=== PATIENT | female | born 1950 | race Caucasian/White ===

== ENCOUNTER 2018-05-29 18:48 | Emergency (ER) | payer MEDICARE, OTHER, SELFPAY ==
[2018-05-29 18:53] VITALS: BP 148/89; PULSE 98; RESP 15; TEMP 36.6; O2SAT 97; BMI 34.0
--- NOTE | 2018-05-29 18:54 | DI.RAD.S_ITS ---
PROCEDURE: XR WRIST LT MIN 3V INDICATIONS: left wrist injury s/p fall TECHNIQUE: 4 views of the wrist were acquired. COMPARISON: None. FINDINGS: Bones: Cortical irregularity along the radial aspect of the distal radial metaphysis raising the possibility of incomplete fracture. Soft tissues: No suspicious soft tissue calcifications. IMPRESSION: Cortical irregularity along the radial aspect of the distal radial metaphysis raising the possibility of incomplete nondisplaced fracture. Please correlate to point tenderness and if necessary further evaluation with repeat radiographs in 10 days could be performed. Otherwise, no fracture. Dictated by: Aramis Cruz M.D. on 05/29/2018 at 20:30 Approved by: Aramis Cruz M.D. on 05/29/2018 at 20:34
--- NOTE | 2018-05-29 20:07 | PC.NURSE ---
sugar tounge applied with sling. pos cms
[2018-05-29 20:08] VITALS: BP 141/80; PULSE 89; RESP 16; O2SAT 99
--- NOTE | 2018-05-29 20:09 | PC.NURSE ---
32 inches of 4in ortho glass applied over cotton padding/wrap on bony prominences. secured in place with 2 rolls of 3in acr wrap. pt reports feeling more comfortable.
--- NOTE | 2018-05-30 02:23 | ED_ITS ---
HPI - Extremity Problem General Chief complaint: Extremity Injury, Upper Stated complaint: THINKS SHE BROKE HER LEFT WRIST Time Seen by Provider: 05/29/18 18:51 Source: patient Mode of arrival: ambulatory Limitations: no limitations History of Present Illness HPI Narrative: 67-year-old female with history of hypertension presents to the emergency department with chief complaint of left distal wrist pain after falling her outstretched wrist. She states that she struck her head and then fell backwards and caught herself with her arm. She heard a snap. She denies any numbness, tingling or weakness. She denies other injury. She denies loss of consciousness nor nausea or vomiting. She denies any blurred vision, trouble with speech or other neurologic symptoms. MD Complaint: extremity pain Pain Consistency: constant Location: left Quality: aching Radiation: none Relieving factors: rest Exacerbating factors: range of motion Related Data Previous Rx's Medication Instructions Recorded amlodipine [Norvasc] 5 mg PO QDAY #90 tab 03/20/17 levothyroxine 112 mcg PO QAM #90 tab 03/20/17 lisinopril 30 mg PO QDAY #90 tab 03/20/17 simvastatin 20 mg PO HS #90 tab 03/20/17 venlafaxine [Effexor XR] 225 mg PO QDAY #270 cap 06/23/17 Allergies Allergy/AdvReac Type Severity Reaction Status Date / Time Penicillins [PENICILLINS] Allergy Mild Verified 05/29/18 18:53 Review of Systems Review of Systems All systems reviewed & are unremarkable except as noted in HPI and below Constitutional Denies chills, Denies fever(s), Denies lethargy and Denies weakness Eyes Denies change in vision, Denies eye discharge, Denies irritation and Denies loss of vision ENT Ears, Nose, Mouth, and Throat: Denies change in voice, Denies neck pain and Denies sore throat Cardiovascular Denies chest pain, Denies irregular heart rhythm, Denies lightheadedness, Denies palpitations, Denies dyspnea, Denies dyspnea on exertion and Denies orthopnea Respiratory Denies cough, Denies dyspnea, Denies dyspnea on exertion and Denies wheezing Gastrointestinal Gastrointestinal: Denies abdominal pain, Denies change in bowel habits, Denies diarrhea, Denies nausea and Denies vomiting Genitourinary Denies hematuria, Denies flank pain, Denies urinary incontinence and Denies urinary urgency Musculoskeletal Reports joint swelling, Reports limited range of motion and Denies neck pain Integumentary/Breasts Denies pruritus, Denies erythema, Denies rash and Denies wounds Neurologic Denies confusion, Denies loss of vision and Denies weakness Psychiatric Denies anxiety, Denies confusion, Denies depression, Denies homicidal ideation and Denies suicidal ideation Endocrine Denies palpitations Hematologic/Lymphatic Denies easy bruising Allergic/Immunologic Denies wheezing PFSH Social History Smoking Status: Never smoker Exam Narrative Exam Narrative: Pleasant 67-year-old female obviously in some pain, clutching her left wrist Initial Vital Signs Initial Vital Signs: Vital Signs Temperature 97.8 F 05/29/18 18:53 Pulse Rate 98 H 05/29/18 18:53 Respiratory Rate 15 05/29/18 18:53 Blood Pressure 148/89 H 05/29/18 18:53 Pulse Oximetry 97 05/29/18 18:53 Const General: cooperative and well developed Nutritional Appearance: well nourished Orientation: alert, awake, oriented x3 and not confused Resp Effort & Inspection: normal respiratory effort, able to speak in complete sentences, no respiratory distress and no use of accessory muscles Auscultation: clear to auscultation bilaterally, no rales, no rhonchi and no wheezes GI Inspection: non-distended Palpation: soft, no hepatosplenomegaly, No guarding, No pulsatile mass and No tender Auscultation: normal bowel sounds Back/Spine/Pelvis Back: No CVA tenderness Cervical Spine: cervical ROM normal and No pain with cervical ROM Thoracic/Lumbar Spine: thoracic and lumbar spine normal to inspection Skin General: no rashes or lesions noted, No jaundice and No petechiae Neuro General: alert, oriented x3, gait normal and no focal motor deficits Speech: speech normal Extrem Left upper extremity: wrist Details: tenderness and abnormal ROM Procedures Orthopedic Splinting/Casting Injury #1: Side: left Upper Extremity Immobilizer: sling/shoulder immobilizer and sugar tong splint Course Orders Ordered: ED Orders 05/29/18 18:54 XR wrist LT min 3V Stat Vital Signs - 8 hr 05/29/18 18:53 05/29/18 20:08 Temperature 97.8 F Pulse Rate 98 H 89 Respiratory Rate 15 16 Blood Pressure 148/89 H 141/80 H Pulse Oximetry 97 99 Discharge Plan Departure Patient Disposition: Home, Self-Care Clinical Impression: Closed fracture of left distal radius Discharge Date/Time: 05/29/18 20:16 Interventions: ED Discharge Assessment Last Done: 05/29/18 20:08 Instructions: DI for Distal Radius Fracture Activity Restrictions/Additional Instructions: *You have been diagnosed with [ minimally displaced left distal radius fracture ] *What to do: *Take medications as directed: Tylenol or Motrin for pain *Follow up with [facility], call for an appointment. Let them know you were seen in the Emergency Department and that we ask that you be seen in follow up *Return to ER if you should have any new, worsening or concerning symptoms , such as [increasing swelling, pain or numbness, tingling or weakness of the fingers ] Prescriptions: No Action amlodipine [Norvasc] 5 MG tablet 5 mg PO QDAY Qty: 90 RF: 3 simvastatin 20 MG tablet 20 mg PO HS Qty: 90 RF: 3 lisinopril 30 MG tablet 30 mg PO QDAY Qty: 90 RF: 3 levothyroxine 112 MCG tablet 112 mcg PO QAM Qty: 90 RF: 3 venlafaxine [Effexor XR] 75 MG capsule,extended release 24hr 225 mg PO QDAY Qty: 270 RF: 3 Referrals: Medardo Burch MD [Physician] -
== END 2018-05-29 20:16 | disposition home or self-care (01) ==
PROVIDERS: Emergency Provider Emergency Medicine
DX: S52.502A Unspecified fracture of the lower end of left radius, initial encounter for closed fracture (principal); W19.XXXA Unspecified fall, initial encounter
CPT/HCPCS: 73110; 99282; 99283

== ENCOUNTER → 2019-01-21 14:17 | Outpatient (CLI) | payer MEDICARE, OTHER, SELFPAY ==
--- NOTE | 2019-01-21 | DI.MG.S_ITS ---
BILATERAL DIGITAL SCREENING MAMMOGRAM 3D/2D WITH CAD: 01/21/2019 CLINICAL: Routine screening. Comparison is made to exams dated: 10/16/2016 mammogram, 08/21/2015 mammogram, and 03/01/2013 mammogram - [facility]. There are scattered fibroglandular elements in both breasts. Current study was also evaluated with a Computer Aided Detection (CAD) system. No significant masses, calcifications, or other findings are seen in either breast. There has been no significant interval change. IMPRESSION: NEGATIVE There is no mammographic evidence of malignancy. A 1 year screening mammogram is recommended. This exam was interpreted at Station ID: [id number]. NOTE: For mammograms, a report in lay terms will be sent to the patient. Approximately 15% of breast malignancies will not be visualized mammographically. In the management of a palpable breast mass, a negative mammogram must not discourage biopsy of a clinically suspicious lesion. Electronically Signed By: Rafael barber/evy:01/21/2019 18:39:19 letter sent: Normal Exam ACR BI-RADS Category 1: Negative [id number]
== END ==
PROVIDERS: Visit Provider Family Medicine
DX: Z12.31 Encounter for screening mammogram for malignant neoplasm of breast (principal)
CPT/HCPCS: 77063; 77067

== ENCOUNTER → 2021-04-22 08:08 | Outpatient (CLI) | payer MEDICARE, OTHER, SELFPAY ==
[2021-04-22 20:40] LABS: Add Manual Diff / Slide Review NO; Basophils Absolute Auto 0 /uL (0-100); Basophils Percent Auto 0.6 % (0-2); Eosinophils Absolute Auto 200 /uL (0-450); Eosinophils Percent Auto 2.8 % (2-4); Hematocrit 42.2 % (36-46); Hemoglobin 14.2 g/dL (12.0-16.0); Lymphocytes Absolute Auto 1200 /uL (1100-4500); Lymphocytes Percent Auto 22.9 % (25-40); Mean Corpuscular HGB Conc 33.6 % (30-36); Mean Corpuscular Hemoglobin 30.8 PG (26-34); Mean Corpuscular Volume 91.8 fL (80-100); Monocytes Absolute Auto 500 /uL (0-900); Monocytes Percent Auto 8.5 % (3-14); Neutrophils Absolute Auto 3500 /uL (1500-7000); Neutrophils Percent Auto 65.2 % (50-75); Platelet Count 221 X10^3/uL (150-400); White Blood Cell Count 5.3 X10^3/uL (4.5-11.0)
[2021-04-22 20:52] LABS: Alanine Aminotransferase 33 IU/L (<35); Albumin Globulin Ratio 1.7 (1.0-2.8); Alkaline Phosphatase 128 U/L (38-126); Aspartate Aminotransferase 32 IU/L (14-36); BUN Creatinine Ratio 27.4 (6-22); Bilirubin Total 0.4 mg/dL (0.2-1.3); Blood Urea Nitrogen 17 mg/dL (7-17); Calcium 9.2 mg/dL (8.4-10.2); Carbon Dioxide 25 mmol/L (22-32); Chloride 107 mmol/L (98-107); Cholesterol 173 mg/dL (140-199); Estimated Glomerular Filt Rate > 60.0 mL/min (>60); Globulin 2.4 g/dL (1.7-4.1); Glucose 119 mg/dL (80-110); HDL Cholesterol 50 mg/dL (40-60); HEMOLYSIS < 15 (0-50); LDL Cholesterol Calculated 98 mg/dL (<100); Potassium 4.2 mmol/L (3.4-5.1); Sodium 141 mmol/L (137-145); Total Protein 6.4 g/dL (6.3-8.2); Triglycerides 125 mg/dL (35-150)
[2021-04-22 20:59] LABS: Hemoglobin A1C% w Est Avg Glu 5.7 % (4.0-6.0)
[2021-04-22 21:21] LABS: Thyroid Stimulating Hormone 13.1 uIU/mL (0.47-4.68)
== END ==
PROVIDERS: PCP Family Medicine; Visit Provider Physician Assistant
DX: E03.9 Hypothyroidism, unspecified (principal); R73.9 Hyperglycemia, unspecified; E78.2 Mixed hyperlipidemia
CPT/HCPCS: 80053; 80061; 83036; 84443; 85025

== ENCOUNTER → 2022-04-18 08:07 | Outpatient (CLI) | payer MEDICARE, OTHER, SELFPAY ==
[2022-04-18 18:42] LABS: Add Manual Diff / Slide Review NO; Basophils Absolute Auto 100 /uL (0-100); Eosinophils Absolute Auto 200 /uL (0-450); Eosinophils Percent Auto 4.3 % (2-4); Hematocrit 43.8 % (36-46); Hemoglobin 15.1 g/dL (12.0-16.0); Lymphocytes Absolute Auto 1300 /uL (1100-4500); Lymphocytes Percent Auto 22.4 % (25-40); Mean Corpuscular HGB Conc 34.4 % (30-36); Mean Corpuscular Hemoglobin 30.4 PG (26-34); Mean Corpuscular Volume 88.5 fL (80-100); Monocytes Absolute Auto 500 /uL (0-900); Monocytes Percent Auto 9.2 % (3-14); Neutrophils Absolute Auto 3700 /uL (1500-7000); Neutrophils Percent Auto 63.1 % (50-75); Platelet Count 244 X10^3/uL (150-400); Red Blood Cell Count 4.95 X10^6/uL (4.0-5.2); Red Cell Distribution Width 13.4 % (11.6-14.8); White Blood Cell Count 5.9 X10^3/uL (4.5-11.0)
[2022-04-18 19:05] LABS: Alanine Aminotransferase 26 IU/L (<35); Albumin 4.3 g/dL (3.5-5.0); Albumin Globulin Ratio 1.7 (1.0-2.8); Alkaline Phosphatase 126 U/L (38-126); Aspartate Aminotransferase 33 IU/L (14-36); BUN Creatinine Ratio 35.3 (6-22); Bilirubin Total 0.7 mg/dL (0.2-1.3); Blood Urea Nitrogen 18 mg/dL (7-17); Calcium 9.1 mg/dL (8.4-10.2); Carbon Dioxide 23 mmol/L (22-32); Chloride 109 mmol/L (98-107); Cholesterol 202 mg/dL (140-199); Estimated Glomerular Filt Rate > 60 mL/min (>60); Globulin 2.6 g/dL (1.7-4.1); Glucose 116 mg/dL (80-110); HDL Cholesterol 62 mg/dL (40-60); HEMOLYSIS 22 (0-50); LDL Cholesterol Calculated 117 mg/dL (<100); Potassium 4.4 mmol/L (3.4-5.1); Sodium 141 mmol/L (137-145); Total Protein 6.9 g/dL (6.3-8.2); Triglycerides 113 mg/dL (35-150)
[2022-04-18 19:33] LABS: TSH w/ Reflex to FT4 < 0.02 uIU/mL (0.47-4.68)
[2022-04-18 20:18] LABS: Free T4, Direct Thyroxine 1.84 ng/dL (0.78-2.19)
== END ==
PROVIDERS: PCP Physician Assistant; Visit Provider Physician Assistant
DX: E03.9 Hypothyroidism, unspecified (principal); E78.2 Mixed hyperlipidemia; I10 Essential (primary) hypertension; Z79.899 Other long term (current) drug therapy
CPT/HCPCS: 80053; 80061; 84439; 84443; 85025

== ENCOUNTER → 2022-10-16 13:49 | Outpatient (CLI) | payer MEDICARE, OTHER, SELFPAY ==
[2022-10-16 19:05] LABS: Alanine Aminotransferase 32 IU/L (<35); Albumin 4.1 g/dL (3.5-5.0); Albumin Globulin Ratio 1.7 (1.0-2.8); Alkaline Phosphatase 144 U/L (38-126); Aspartate Aminotransferase 28 IU/L (14-36); BUN Creatinine Ratio 28.4 (6-22); Bilirubin Total 0.4 mg/dL (0.2-1.3); Blood Urea Nitrogen 19 mg/dL (7-17); Calcium 9.6 mg/dL (8.4-10.2); Carbon Dioxide 25 mmol/L (22-32); Chloride 106 mmol/L (98-107); Estimated Glomerular Filt Rate > 60 mL/min (>60); Globulin 2.4 g/dL (1.7-4.1); Glucose 143 mg/dL (80-110); HEMOLYSIS < 15 (0-50); Potassium 4.5 mmol/L (3.4-5.1); Sodium 141 mmol/L (137-145); Total Protein 6.5 g/dL (6.3-8.2)
[2022-10-16 19:30] LABS: TSH w/ Reflex to FT4 < 0.02 uIU/mL (0.47-4.68)
[2022-10-16 20:40] LABS: Free T4, Direct Thyroxine 1.52 ng/dL (0.78-2.19)
== END ==
PROVIDERS: PCP Physician Assistant; Visit Provider Physician Assistant
DX: E03.9 Hypothyroidism, unspecified (principal); Z79.899 Other long term (current) drug therapy
CPT/HCPCS: 80053; 84439; 84443

== ENCOUNTER → 2023-04-06 10:20 | Outpatient (CLI) | payer MEDICARE, OTHER, SELFPAY ==
[2023-04-06 19:52] LABS: TSH w/ Reflex to FT4 0.07 uIU/mL (0.47-4.68)
== END ==
PROVIDERS: PCP Physician Assistant; Visit Provider Physician Assistant
DX: E03.9 Hypothyroidism, unspecified (principal)
CPT/HCPCS: 84439; 84443

== ENCOUNTER → 2023-07-02 13:16 | Outpatient (CLI) | payer MEDICARE, OTHER, SELFPAY ==
[2023-07-02 20:13] LABS: TSH w/ Reflex to FT4 0.83 uIU/mL (0.47-4.68)
== END ==
PROVIDERS: PCP Physician Assistant; Visit Provider Physician Assistant
DX: E03.9 Hypothyroidism, unspecified (principal)
CPT/HCPCS: 84443

== ENCOUNTER → 2023-12-16 09:27 | Outpatient (CLI) | payer MEDICARE, OTHER, SELFPAY ==
[2023-12-16 20:36] LABS: Add Manual Diff / Slide Review NO; Basophils Absolute Auto 0 /uL (0-100); Basophils Percent Auto 0.9 % (0-2); Eosinophils Absolute Auto 200 /uL (0-450); Hematocrit 43.5 % (36-46); Hemoglobin 14.7 g/dL (12.0-16.0); Lymphocytes Absolute Auto 1100 /uL (1100-4500); Lymphocytes Percent Auto 20.6 % (25-40); Mean Corpuscular HGB Conc 33.8 % (30-36); Mean Corpuscular Hemoglobin 30.6 PG (26-34); Mean Corpuscular Volume 90.5 fL (80-100); Monocytes Absolute Auto 400 /uL (0-900); Monocytes Percent Auto 8.1 % (3-14); Neutrophils Absolute Auto 3600 /uL (1500-7000); Neutrophils Percent Auto 66.4 % (50-75); Platelet Count 274 X10^3/uL (150-400); Red Cell Distribution Width 13.7 % (11.6-14.8); White Blood Cell Count 5.4 X10^3/uL (4.5-11.0)
[2023-12-16 20:40] LABS: Alanine Aminotransferase 28 IU/L (<35); Albumin 4.4 g/dL (3.5-5.0); Albumin Globulin Ratio 1.7 (1.0-2.8); Alkaline Phosphatase 116 U/L (38-126); Aspartate Aminotransferase 30 IU/L (14-36); BUN Creatinine Ratio 25.5 (6-22); Blood Urea Nitrogen 13 mg/dL (7-17); Calcium 9.5 mg/dL (8.4-10.2); Carbon Dioxide 26 mmol/L (22-32); Chloride 105 mmol/L (98-107); Cholesterol 184 mg/dL (140-199); Estimated Glomerular Filt Rate > 60 mL/min (>60); Gamma Glutamyl Transpeptidase 36 U/L (12-43); Globulin 2.6 g/dL (1.7-4.1); Glucose 116 mg/dL (80-110); HDL Cholesterol 54 mg/dL (40-60); HEMOLYSIS 21 (0-50); LDL Cholesterol Calculated 98 mg/dL (<100); Potassium 4.3 mmol/L (3.4-5.1); Sodium 140 mmol/L (137-145); Triglycerides 161 mg/dL (35-150)
[2023-12-16 21:05] LABS: TSH w/ Reflex to FT4 0.32 uIU/mL (0.47-4.68)
[2023-12-16 21:45] LABS: Free T4, Direct Thyroxine 1.08 ng/dL (0.78-2.19)
== END ==
PROVIDERS: PCP Physician Assistant; Visit Provider Physician Assistant
DX: R74.8 Abnormal levels of other serum enzymes (principal); R79.9 Abnormal finding of blood chemistry, unspecified; E78.5 Hyperlipidemia, unspecified; E03.9 Hypothyroidism, unspecified; E78.2 Mixed hyperlipidemia; I10 Essential (primary) hypertension
CPT/HCPCS: 80053; 80061; 82977; 84439; 84443; 85025

== ENCOUNTER → 2024-01-14 14:39 | Outpatient (CLI) | payer MEDICARE, OTHER, SELFPAY ==
--- NOTE | 2024-01-14 14:44 | DI.RAD.S_ITS ---
Bone Density Report Name: ALEXIS TELLES Age: 73 Sex: Female Ethnicity: White Date of : 1950 Indication: postmenopausal; screening for osteoporosis; Referring Provider: FINN RENTERIA Study: Bone densitometry was performed. Exam Date: January 14, 2024 Accession number: [id number] Bone Density: Region BMD T-score Z-score Classification AP Spine(L1, L2, L3) 0.895 -1.1 1.1 Osteopenia Femoral Neck (Left) 0.704 -1.3 0.6 Osteopenia Total Hip (Left) 0.889 -0.4 1.2 Normal Femoral Neck (Right) 0.707 -1.3 0.7 Osteopenia Total Hip (Right) 0.913 -0.2 1.4 Normal Total Hip Mean 0.901 -0.3 1.3 Normal World Health Organization criteria for BMD impression classify patients as: Normal (T-score at or above -1.0), Osteopenia (T-score between -1.0 and -2.5), or Osteoporosis (T-score at or below -2.5). 10-year Fracture Risk(1): Major Osteoporotic Fracture 9.3% Hip Fracture 1.3% Reported Risk Factors: [place] (), Neck BMD=0.704, BMI=35.2 (1) FRAX(R) Version 3.08. Fracture probability calculated for an untreated patient. Fracture probability may be lower if the patient has received treatment. Impression: The patient has low bone mass, based on the Left Femoral Neck T-score. The patient has an estimated ten-year risk of hip fracture of 1.3% and an estimated ten-year risk of major fracture of 9.3%, based on the WHO FRAX algorithm. Discussion: BONE DENSITY IS LOW AT ONE OR MORE SKELETAL SITES. This patient's lowest T-score is low at one or more skeletal sites. It meets the World Health Organization's (WHO) criteria for low bone mass (T-score between -1.0 and -2.5). The patient's 10-year risk of fracture as calculated by FRAX is less than the threshold where pharmacological therapy is recommended by the National Osteoporosis Foundation (NOF). However, all treatment decisions require clinical judgment and consideration of individual patient factors, including patient preferences, comorbidities, previous drug use, risk factors not captured in the FRAX model (e.g., frailty, falls, vitamin D deficiency, increased bone turnover, interval significant decline in bone density) and possible under or overestimation of fracture risk by FRAX. The patient should follow a healthful lifestyle (good nutrition with adequate calcium and vitamin D, and appropriate weight-bearing exercise). Follow-Up: Consider repeating this study in 2 to 3 years to reassess this patient's status, or sooner if there is some new clinical indication. Reported by: KATTY HOOD M.D. on 01/14/2024 3:05:00 PM.
--- NOTE | 2024-01-14 14:44 | DI.MG.S_ITS ---
BILATERAL DIGITAL SCREENING MAMMOGRAM 3D/2D WITH CAD: 01/14/2024 CLINICAL: Routine screening. Comparison is made to exams dated: 01/21/2019 mammogram - [facility], 10/16/2016 mammogram, and 08/21/2015 mammogram - [facility]. There are scattered areas of fibroglandular density in both breasts (category b / 25%-50% glandular tissue). Current study was also evaluated with a Computer Aided Detection (CAD) system. No significant masses, calcifications, or other findings are seen in either breast. There has been no significant interval change. IMPRESSION: NEGATIVE There is no mammographic evidence of malignancy. A 1 year screening mammogram is recommended. Based on the Tyrer Cuzick model (a risk assessment model) the patient's lifetime risk is 3.0% and her 10 year risk is 2.2%. According to the ACR, ACS, and NCCN guidelines, an annual breast MRI exam along with mammogram is recommended if the patient's lifetime risk is 20% or greater. This exam was interpreted at Station ID: [id number]. NOTE: For mammograms, a report in lay terms will be sent to the patient. Approximately 15% of breast malignancies will not be visualized mammographically. In the management of a palpable breast mass, a negative mammogram must not discourage biopsy of a clinically suspicious lesion. Electronically Signed By: Marvin wolf/evy:01/14/2024 15:38:52 letter sent: Normal Exam ACR BI-RADS Category 1: Negative [id number]
== END ==
LOC: RAD 14:41
PROVIDERS: PCP Physician Assistant; Referring Provider Physician Assistant; Visit Provider Physician Assistant
DX: M85.852 Other specified disorders of bone density and structure, left thigh (principal); Z12.31 Encounter for screening mammogram for malignant neoplasm of breast; Z78.0 Asymptomatic menopausal state; R92.323 Mammographic fibroglandular density, bilateral breasts
CPT/HCPCS: 77063; 77067; 77080

== ENCOUNTER → 2024-04-05 15:16 | Outpatient (CLI) | payer MEDICARE, OTHER, SELFPAY ==
--- NOTE | 2024-04-05 15:18 | DI.MRI.S_ITS ---
PROCEDURE: MR LUMBAR SPINE WO CON INDICATIONS: LUMBAR RADICULOPATHY TECHNIQUE: Noncontrast sagittal T1 spin echo and T2 fast echo, sagittal STIR, and T2 fast spin echo through the lumbar spine. In cases with scoliosis, additional coronal T2 fast spin echo may be performed. COMPARISON: None. FINDINGS: Image quality: Excellent. Alignment and Curvature: There is grade I L4 on L5 and L5 on S1 anterolisthesis. Bone Marrow: Marrow is of normal overall signal. No acute vertebral body compression fractures. Spinal Cord: Conus medullaris terminates at the L1 level. Visualized cord demonstrates normal signal and size. Paraspinous Soft Tissues: No paravertebral masses. T12-L1: Mild disc desiccation and height loss. No canal stenosis. No foraminal narrowing. L1-L2: Mild disc desiccation and height loss. Broad-based disc bulge. No canal stenosis. No foraminal stenosis. L2-L3: Normal appearance. L3-L4: Mild disc desiccation and height loss. Broad-based disc bulge. No canal stenosis. Mild bilateral foraminal stenosis. L4-L5: Severe disc desiccation and height loss. Anterolisthesis. Severe facet ligamentum flavum hypertrophy. No canal stenosis. Moderate bilateral foraminal stenosis. L5-S1: Severe disc desiccation and height loss. Severe facet and ligamentum flavum hypertrophy. There are displaced bilateral pars interarticularis defects. Severe bilateral foraminal stenosis with flattening of the exiting nerve roots. IMPRESSION: 1. 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 2. L4-5 and L5-S1 grade I anterolisthesis. Moderate bilateral foraminal stenosis is present at L4-5. Dictated by: Mary Milner M.D. on 04/06/2024 at 8:11 Approved by: Mary Milner M.D. on 04/06/2024 at 8:29
== END ==
PROVIDERS: PCP Physician Assistant; Referring Provider Physical Medicine & Rehabilitation Pain Medicine; Visit Provider Physical Medicine & Rehabilitation Pain Medicine
DX: M54.16 Radiculopathy, lumbar region (principal); M43.17 Spondylolisthesis, lumbosacral region; M43.16 Spondylolisthesis, lumbar region; M48.061 Spinal stenosis, lumbar region without neurogenic claudication; M48.07 Spinal stenosis, lumbosacral region
CPT/HCPCS: 72148

== ENCOUNTER → 2024-10-27 13:11 | Outpatient (CLI) | payer MEDICARE, OTHER, SELFPAY ==
[2024-10-27 19:44] LABS: Alanine Aminotransferase 28 IU/L (<35); Albumin Globulin Ratio 1.5 (1.0-2.8); Alkaline Phosphatase 118 U/L (38-126); Aspartate Aminotransferase 38 IU/L (14-36); BUN Creatinine Ratio 30.6 (6-22); Bilirubin Total 0.5 mg/dL (0.2-1.3); Blood Urea Nitrogen 19 mg/dL (7-17); Calcium 9.8 mg/dL (8.4-10.2); Carbon Dioxide 27 mmol/L (22-32); Chloride 107 mmol/L (98-107); Estimated Glomerular Filt Rate > 60 mL/min (>60); Globulin 2.7 g/dL (1.7-4.1); Glucose 98 mg/dL (80-110); HEMOLYSIS 24 (0-50); Hemoglobin A1C% w Est Avg Glu 5.6 % (4.0-6.0); Potassium 4.4 mmol/L (3.4-5.1); Sodium 138 mmol/L (137-145); Total Protein 6.7 g/dL (6.3-8.2)
[2024-10-27 20:32] LABS: Hep C Virus Ab w/Reflex Quant NEGATIVE s/c (NEGATIVE)
== END ==
PROVIDERS: PCP Physician Assistant; Visit Provider Physician Assistant
DX: E03.9 Hypothyroidism, unspecified (principal); R73.9 Hyperglycemia, unspecified; Z79.899 Other long term (current) drug therapy
CPT/HCPCS: 80053; 83036; 84439; 84443; 86803

== ENCOUNTER → 2025-02-23 11:57 | Outpatient (CLI) | payer MEDICARE, OTHER, SELFPAY ==
[2025-02-23 20:03] LABS: TSH w/ Reflex to FT4 0.27 uIU/mL (0.47-4.68)
[2025-02-23 20:47] LABS: Free T4, Direct Thyroxine 1.15 ng/dL (0.78-2.19)
== END ==
PROVIDERS: PCP Physician Assistant; Visit Provider Physician Assistant
DX: E03.9 Hypothyroidism, unspecified (principal)
CPT/HCPCS: 84439; 84443

== ENCOUNTER → 2025-06-26 08:56 | Outpatient (CLI) | payer MEDICARE, OTHER, SELFPAY ==
[2025-06-26 20:36] LABS: Add Manual Diff / Slide Review NO; Hematocrit 44.4 % (36-46); Hemoglobin 15.0 g/dL (12.0-16.0); Lymphocytes Absolute Auto 1400 /uL (1100-4500); Mean Corpuscular HGB Conc 33.8 % (30-36); Mean Corpuscular Hemoglobin 31.4 PG (26-34); Mean Corpuscular Volume 92.7 fL (80-100); Platelet Count 251 X10^3/uL (150-400)
[2025-06-26 20:54] LABS: Alanine Aminotransferase 29 IU/L (<35); Albumin 4.5 g/dL (3.5-5.0); Albumin Globulin Ratio 1.9 (1.0-2.8); Alkaline Phosphatase 124 U/L (38-126); Blood Urea Nitrogen 18 mg/dL (7-17); Calcium 9.6 mg/dL (8.4-10.2); Carbon Dioxide 24 mmol/L (22-32); Chloride 108 mmol/L (98-107); Cholesterol 179 mg/dL (140-199); Estimated Glomerular Filt Rate > 60 mL/min (>60); Globulin 2.4 g/dL (1.7-4.1); Glucose 106 mg/dL (70-99); HDL Cholesterol 52 mg/dL (40-60); HEMOLYSIS 36 (0-50); Sodium 140 mmol/L (137-145); Total Protein 6.9 g/dL (6.3-8.2); Triglycerides 193 mg/dL (35-150)
[2025-06-26 21:07] LABS: Potassium 4.3 mmol/L (3.4-5.1)
[2025-06-26 21:15] LABS: TSH w/ Reflex to FT4 3.71 uIU/mL (0.47-4.68)
== END ==
PROVIDERS: PCP Physician Assistant; Visit Provider Physician Assistant
DX: E78.00 Pure hypercholesterolemia, unspecified (principal); Z79.899 Other long term (current) drug therapy; I10 Essential (primary) hypertension; E78.2 Mixed hyperlipidemia
CPT/HCPCS: 80053; 80061; 84443; 85025